=== PATIENT | male | born 1975 | race Caucasian/White ===

== ENCOUNTER 2023-12-01 19:04 | Emergency (ER) | payer MEDICAID ==
[~2023-12-01] VITALS: Ht 170.2 cm; Wt 61.4 kg
[2023-12-01] MEDS: ketorolac trometh 30MG/ML vial 30 MG/ML VIAL IM ONE (19:17)
[2023-12-01] MEDS ORDERED: AMOX-580 PO (19:18)
[2023-12-01 19:33] VITALS: BP 130/73; PULSE 75; RESP 16; TEMP 98.1; O2SAT 99
== END 2023-12-01 19:38 | disposition home or self-care (01) ==
LOC: ER 19:04
DX: K04.7 Periapical abscess without sinus (principal); K02.9 Dental caries, unspecified
CPT/HCPCS: 99283